=== PATIENT | male | born 1995 | race Caucasian/White ===

== ENCOUNTER 2021-02-25 19:51 | Emergency (ER) | payer SELFPAY ==
[~2021-02-25] VITALS: Ht 185.4 cm; Wt 83.9 kg
[2021-02-25 20:04] VITALS: BP 140/77
--- NOTE | 2021-02-25 21:22 | NUR ---
Patient discharged to home in stable condition. Written and verbal after care instructions given. Patient verbalizes understanding of instruction.
== END 2021-02-25 21:23 | disposition home or self-care (01) ==
LOC: ER 19:55
DX: T88.1XXA Other complications following immunization, not elsewhere classified, initial encounter (principal); R07.89 Other chest pain; F41.9 Anxiety disorder, unspecified; J45.909 Unspecified asthma, uncomplicated; Z88.1 Allergy status to other antibiotic agents; Z60.2 Problems related to living alone
CPT/HCPCS: 71045-TC